=== PATIENT | male | born 1965 | race Caucasian/White ===

== ENCOUNTER 2017-05-12 18:04 | Emergency (ER) | payer SELFPAY ==
[~2017-05-12 18:04] MED LIST: Sodium Chloride Irrig Solution 250 ML BOT ONE
[2017-05-12] MEDS ORDERED: Lidocaine 1% 20 ML MDV ONE (18:25)
[2017-05-12] MEDS ORDERED: Clindamycin 150 MG CAP ONE (18:40)
[2017-05-12] MEDS ORDERED: traMADol HCl 50 MG TAB ONE (19:02)
== END 2017-05-12 19:05 | disposition home or self-care (01) ==
LOC: MADERS 18:04
DX: L02.214 Cutaneous abscess of groin (principal); E11.9 Type 2 diabetes mellitus without complications; F17.210 Nicotine dependence, cigarettes, uncomplicated
CPT/HCPCS: 10060; J2001

== ENCOUNTER 2017-10-15 17:40 | Outpatient (CLI) | payer OTHER ==
--- NOTE | 2017-10-15 19:24 | RAD ---
RIGHT HAND THREE VIEWS 10/15/17 HISTORY: Fifth digit infection. COMPARISON: None. FINDINGS: There is a fracture of the fifth proximal phalanx extending from the proximal diaphysis through the d istal metaphysis. No definite intra-articular extension. No other fracture or malalignment is appreciated. Mild soft tissue swelling of the fifth digit. IMPRESSION: Sagittal oblique fracture through the proximal phalanx small finger. This appears relatively acute. POS: RYAN
== END 2017-10-15 17:41 | disposition home or self-care (01) ==
LOC: MADRAD 17:40
PROVIDERS: ATTEND Physician Assistant
DX: L08.9 Local infection of the skin and subcutaneous tissue, unspecified (principal); S62.616A Displaced fracture of proximal phalanx of right little finger, initial encounter for closed fracture